=== PATIENT | male | born 1940 | race Caucasian/White ===

== ENCOUNTER 2018-12-07 13:42 | Observation (INO) ==
[2018-12-07] MEDS ORDERED: Aspirin 81 MG TAB.CHEW PO ONE (13:53)
[2018-12-07 14:26] LABS: Basophils % 1.1 %; Eosinophils # 0.1 K/mcL (0.0-0.6); Eosinophils % 1.9 %; Hematocrit 41.5 % (37.5-50.1); Hemoglobin 13.3 g/dL (12.9-16.9); Lymphocytes # 0.8 K/mcL (0.6-4.6); Lymphocytes % 20.5 %; Mean Corpuscular Hemoglobin 30.6 pg (28.0-33.3); Mean Corpuscular Volume 95.6 fL (83.0-100.0); Mean Platelet Volume 9.1 fL (9.4-12.4); Monocytes # 0.4 K/mcL (0.0-1.3); Monocytes % 11.6 %; Neutrophils # 2.4 K/mcL (1.6-8.9); Platelet Count 182 K/mcL (140-400); Red Blood Count 4.34 M/mcL (4.19-5.50); Red Cell Distribution Width 12.2 % (11.5-14.5); Segmented Neutrophils % 64.9 %
[2018-12-07 14:31] LABS: Prothrombin Time 11.6 Seconds (9.4-12.1)
[2018-12-07] MEDS ORDERED: Isovue-370 500 ML BOTTLE IVP ONE (14:32)
[2018-12-07 14:34] LABS: Activated Partial Thrombo Time 33.6 Seconds (26.0-36.0)
--- NOTE | 2018-12-07 14:51 | Emergency Department Note ---
Disposition Clinical Impression: Chest pain Qualifiers: Chest pain type: unspecified Qualified Code(s): R07.9 - Chest pain, unspecified Disposition: Admitted As Inpatient Condition: Fair Referrals: Fabián Estrada Jr, MD [Primary Care Provider] - Forms: ED Satisfaction Letter Time of Disposition: 16:07 Chest Pain HPI - General Chief Complaint: ED Chest Pain Stated Complaint: Chest Pain Time Seen by Provider: 12/07/18 13:46 Source: patient - History of Present Illness Severity scale (1-10): 0 - Related Data Home Medications Medication Instructions Recorded Confirmed Febuxostat [Uloric] 40 mg PO QAM 11/03/15 11/03/15 Previous Rx's Medication Instructions Recorded Hydrocodone/Acetaminophen [[place] 1 tab PO Q4H PRN #10 tab 11/03/15 5-325 Tablet] Allergies Allergy/AdvReac Type Severity Reaction Status Date / Time prochlorperazine Allergy Hives Verified 11/03/15 10:59 [From Compazine] Chest Pain PMH - Past Medical History Medical history: Reports: cancer Psychiatric history: Reports: no psych history - Social History Smoking Status: Never smoker Alcohol use: Reports: none Drug use: Reports: none Physical Exam - General General appearance: alert Course Vital Signs Temperature 98.2 F 12/07/18 13:48 Pulse Rate 68 12/07/18 13:48 Respiratory Rate 13 12/07/18 13:48 Blood Pressure 147/82 12/07/18 13:48 O2 Sat by Pulse Oximetry 98 12/07/18 13:48 Temperature 98.2 F 12/07/18 13:48 Pulse Rate 70 12/07/18 15:32 Respiratory Rate 21 12/07/18 15:32 Blood Pressure 139/71 12/07/18 15:32 O2 Sat by Pulse Oximetry 100 12/07/18 15:32 Oxygen Delivery Oxygen Delivery Room Air Chest Pain - Lab Data Result diagrams: 12/07/18 14:07 12/07/18 14:07 Lab Results 12/07/18 12/07/18 12/07/18 Range/Units 14:07 14:07 14:07 WBC 3.7 L (4.3-11.1) K/mcL RBC 4.34 (4.19-5.50) M/mcL Hgb 13.3 (12.9-16.9) g/dL Hct 41.5 (37.5-50.1) % MCV 95.6 (83.0-100.0) fL MCH 30.6 (28.0-33.3) pg MCHC 32.0 (31.6-35.5) g/dL RDW 12.2 (11.5-14.5) % Plt Count 182 (140-400) K/mcL MPV 9.1 L (9.4-12.4) fL Immature Gran % 0.0 (0-4) % Seg Neutrophils % 64.9 % Lymphocytes % 20.5 % Monocytes % 11.6 % Eosinophils % 1.9 % Basophils % 1.1 % Neutrophils # 2.4 (1.6-8.9) K/mcL Lymphocytes # 0.8 (0.6-4.6) K/mcL Monocytes # 0.4 (0.0-1.3) K/mcL Eosinophils # 0.1 (0.0-0.6) K/mcL Basophils # 0.0 (0.0-0.2) K/mcL PT 11.6 (9.4-12.1) Seconds INR 1.0 APTT 33.6 (26.0-36.0) Seconds Sodium (136-145) mEq/L Potassium (3.5-5.1) mEq/L Chloride (98-107) mEq/L Carbon Dioxide (23-29) mEq/L BUN (8-23) mg/dL Creatinine (0.70-1.30) mg/dL Est GFR ( Amer) (> 60) Est GFR (Non-Af Amer) (> 60) BUN/Creatinine Ratio (6-26) Glucose (70-105) mg/dL Calculated Osmolality (280-300) Calcium (8.6-10.3) mg/dL Troponin I (< 0.04) ng/mL B-Natriuretic Peptide 66 (Less than 100) pg/mL 12/07/18 Range/Units 14:07 WBC (4.3-11.1) K/mcL RBC (4.19-5.50) M/mcL Hgb (12.9-16.9) g/dL Hct (37.5-50.1) % MCV (83.0-100.0) fL MCH (28.0-33.3) pg MCHC (31.6-35.5) g/dL RDW (11.5-14.5) % Plt Count (140-400) K/mcL MPV (9.4-12.4) fL Immature Gran % (0-4) % Seg Neutrophils % % Lymphocytes % % Monocytes % % Eosinophils % % Basophils % % Neutrophils # (1.6-8.9) K/mcL Lymphocytes # (0.6-4.6) K/mcL Monocytes # (0.0-1.3) K/mcL Eosinophils # (0.0-0.6) K/mcL Basophils # (0.0-0.2) K/mcL PT (9.4-12.1) Seconds INR APTT (26.0-36.0) Seconds Sodium 138 (136-145) mEq/L Potassium 4.1 (3.5-5.1) mEq/L Chloride 104 (98-107) mEq/L Carbon Dioxide 28 (23-29) mEq/L BUN 13 (8-23) mg/dL Creatinine 0.84 (0.70-1.30) mg/dL Est GFR ( Amer) > 60 (> 60) Est GFR (Non-Af Amer) > 60 (> 60) BUN/Creatinine Ratio 15 (6-26) Glucose 102 (70-105) mg/dL Calculated Osmolality 286 (280-300) Calcium 9.3 (8.6-10.3) mg/dL Troponin I < 0.03 (< 0.04) ng/mL B-Natriuretic Peptide (Less than 100) pg/mL Attestation Statement - Attestation Attestation: I, Star Chambers DO, examined this patient [id number] and my medical decision-making was reviewed with Dr. Turner Lopez, Resident Physician. I agree with the documented findings, disposition and treatment plan as described except to the extent set forth below. I personally supervised and was present for the cortez/critical portions of the procedures completed by the resident documented below. Please see my progress notes for details. 78-year-old male presents emergency room with complaint of a proximally 6 weeks worth of chest discomfort and pain. He denies any falls trauma or injury. On evaluation the bedside is denying chest pain or symptoms. He says the symptoms come and go at random times radiated into his back. He denies any nausea vomiting or diarrhea. He does not have any headache or vision change. Denies a ny new medications. He did just start taking an aspirin again secondary to a previous history of spontaneous intracranial bleed. He is otherwise not any other blood thinners. Patient is sitting upright in the bed. He is alert he is oriented he is answering questions appropriately. His oropharynx is patent trachea is midline. His lungs are clear his heart is regular. He has no auscultated murmurs on exam. Abdomen is soft no pulsatile masses or lesions. Extremities otherwise normal. No signs of pitting edema or swelling. Patient was walking through the emergency department under his own power with no distress her symptoms. Patient is concerning for cardiac versus vascular related issue. He is very tall and thin concerning for possible marfanoid-like presentation. Family members are also very tall as well. Due to the timeframe of the symptoms as well as the chest discomfort the patient will have CT angiography the chest along with screening cardiac evaluation completed here at this time. Aspirin was given. CT the head was also ordered to rule out any signs of intracranial abnormality secondary to the concern for possibly needing blood thinners. Disposition pending full workup and treatment course. See detailed documentation the physical exam, medical intervention, medical decision-making and disposition in the resident physician's note. No critical care by the patient's treatment course at this time. Previous labs from 2 months ago shows stable GFR and creatinine the patient will be sent over for angiography at this time. [address] angiography the chest abdomen pelvis for dissection or aneurysm at this point. Patient has remained chest pain-free while here. Most of the symptoms are with exertion. Patient will not be started on heparin. We attempted to discuss this with the hospitalist but they did not feel that an ticoagulation was appropriate at this point. Patient is otherwise asymptomatic. Will continue to monitor here in the emergency room until the admission process is completed. Patient otherwise has no other acute findings noted during the treatment course. He will be admitted this time for acute coronary syndrome rule out.
[2018-12-07 14:53] LABS: BUN/Creatinine Ratio 15 (6-26); Blood Urea Nitrogen 13 mg/dL (8-23); Calcium 9.3 mg/dL (8.6-10.3); Carbon Dioxide 28 mEq/L (23-29); Chloride 104 mEq/L (98-107); Glucose 102 mg/dL (70-105); Osmolality,Calculated 286 (280-300); Potassium 4.1 mEq/L (3.5-5.1); Sodium 138 mEq/L (136-145); Troponin I < 0.03 ng/mL (< 0.04); eGFR For Non-African Americans > 60 (> 60)
--- NOTE | 2018-12-07 15:06 | Emergency Department Note ---
Disposition Clinical Impression: Chest pain Qualifiers: Chest pain type: unspecified Qualified Code(s): R07.9 - Chest pain, unspecified Disposition: Admitted As Inpatient Condition: Fair Referrals: Fabián Estrada Jr, MD [Non-Partnered Physician] - Forms: ED Satisfaction Letter Time of Disposition: 16:12 Chest Pain HPI - General Chief Complaint: ED Chest Pain Stated Complaint: Chest Pain Time Seen by Provider: 12/07/18 13:46 Source: patient Mode of arrival: ambulatory Limitations: no limitations Vital Signs Reviewed: Yes Nursing Notes Reviewed: Yes - History of Present Illness HPI Narrative: 78-year-old male no medical history presents to the emergency department complaining of right-sided chest pain as well as right shoulder pain. Said the pains been going on for 6 weeks. He describes it as 6 out of 10 nonradiating dull ache. Patient says that he has no other nausea or vomiting no other fevers no other complaints. He is not complaining of any abdominal pain. He has had no fevers or chills or coughing or congestion. He has not been a long car rides no history of blood clots, no recent surgeries he is not on any blood thinners. He did take a 325 aspirin prior to arrival. Patient otherwise has no other complaints at this time. Severity scale (1-10): 0 - Related Data Home Medications Medication Instructions Recorded Confirmed Febuxostat [Uloric] 40 mg PO QAM 11/03/15 11/03/15 Previous Rx's Medication Instructions Recorded Hydrocodone/Acetaminophen [[place] 1 tab PO Q4H PRN #10 tab 11/03/15 5-325 Tablet] Allergies Allergy/AdvReac Type Severity Reaction Status Date / Time prochlorperazine Allergy Hives Verified 11/03/15 10:59 [From Compazine] All systems ED: reviewed and negative except as stated. Review of Systems: As Per HPI Chest Pain PMH - Past Medical History Medical history: Reports: cancer Psychiatric history: Reports: no psych history - Social History Smoking Status: Never smoker Alcohol use: Reports: none Drug use: Reports: none Physical Exam - General Limitations: no limitations General appearance: alert - Head Head exam: atraumatic, normocephalic, normal inspection - Eye Eye exam: Present: normal appearance, PERRL, EOMI - ENT ENT exam: normal exam, normal oropharynx, mucous membranes moist - Neck Neck exam: Present: normal inspection, full ROM, trachea midline - Chest Chest inspection: Present: normal inspection, symmetric chest wall rise - Respiratory Respiratory exam: Present: normal lung sounds bilaterally - Cardiovascular Cardiovascular exam: Present: regular rate, normal rhythm, normal heart sounds - Abdominal Exam Abdominal exam: Present: soft, Non-Tender. Absent: tenderness, distention, guarding, rebound, rigidity - Extremities Exam Extremities exam: Present: normal inspection, full ROM. Absent: tenderness, pedal edema - Back Exam Back exam: Present: normal inspection, full ROM. Absent: tenderness - Neurological Exam Neurological exam: Present: alert, oriented X3 - Skin Skin exam: Present: warm, dry, intact, normal color Course Course Narrative: 78-year-old male presented emergency department with chest pain. We will get basic blood screening CBC BMP troponin will also get chest x-ray patient today took aspirin. No chest or now no nitroglycerin needed. We will do CT angiogram of the chest to rule out aortic aneurysm. Patient okay at this point. Most likely disposition will be admission for further evaluation. Vital Signs Temperature 98.2 F 12/07/18 13:48 Pulse Rate 68 12/07/18 13:48 Respiratory Rate 13 12/07/18 13:48 Blood Pressure 147/82 12/07/18 13:48 O2 Sat by Pulse Oximetry 98 12/07/18 13:48 Temperature 98.2 F 12/07/18 13:48 Pulse Rate 70 12/07/18 15:32 Respiratory Rate 21 12/07/18 15:32 Blood Pressure 139/71 12/07/18 15:32 O2 Sat by Pulse Oximetry 100 12/07/18 15:32 Oxygen Delivery Oxygen Delivery Room Air Chest Pain - [facility] Narrative Medical decision making narrative: 78-year-old male process the emergency department complaining of chest pain. CT [place] chest was negative for dissection. Troponins also were negative. I spoke with the hospitalist and agreed to admit the patient for ACS rule out. Patient does have a low heart score but due to having the unstable angina as is worse with walking I feel patient needs to be admitted for further evaluation patient family both agree. Patient's admitted in stable condition. No acute EKG changes I spoke with the hospitalist Dr. Delvalle who agreed to accept patient. - Medical Records Medical records reviewed: Yes I reviewed the patient's medical records. - Lab Data Lab results reviewed: Yes I reviewed the patient's lab results. Result diagrams: 12/07/18 14:07 12/07/18 14:07 Lab Results 12/07/18 12/07/18 12/07/18 Range/Units 14:07 14:07 14:07 WBC 3.7 L (4.3-11.1) K/mcL RBC 4.34 (4.19-5.50) M/mcL Hgb 13.3 (12.9-16.9) g/dL Hct 41.5 (37.5-50.1) % MCV 95.6 (83.0-100.0) fL MCH 30.6 (28.0-33.3) pg MCHC 32.0 (31.6-35.5) g/dL RDW 12.2 (11.5-14.5) % Plt Count 182 (140-400) K/mcL MPV 9.1 L (9.4-12.4) fL Immature Gran % 0.0 (0-4) % Seg Neutrophils % 64.9 % Lymphocytes % 20.5 % Monocytes % 11.6 % Eosinophils % 1.9 % Basophils % 1.1 % Neutrophils # 2.4 (1.6-8.9) K/mcL Lymphocytes # 0.8 (0.6-4.6) K/mcL Monocytes # 0.4 (0.0-1.3) K/mcL Eosinophils # 0.1 (0.0-0.6) K/mcL Basophils # 0.0 (0.0-0.2) K/mcL PT 11.6 (9.4-12.1) Seconds INR 1.0 APTT 33.6 (26.0-36.0) Seconds Sodium (136-145) mEq/L Potassium (3.5-5.1) mEq/L Chloride (98-107) mEq/L Carbon Dioxide (23-29) mEq/L BUN (8-23) mg/dL Creatinine (0.70-1.30) mg/dL Est GFR ( Amer) (> 60) Est GFR (Non-Af Amer) (> 60) BUN/Creatinine Ratio (6-26) Glucose (70-105) mg/dL Calculated Osmolality (280-300) Calcium (8.6-10.3) mg/dL Troponin I (< 0.04) ng/mL B-Natriuretic Peptide 66 (Less than 100) pg/mL 12/07/18 Range/Units 14:07 WBC (4.3-11.1) K/mcL RBC (4.19-5.50) M/mcL Hgb (12.9-16.9) g/dL Hct (37.5-50.1) % MCV (83.0-100.0) fL MCH (28.0-33.3) pg MCHC (31.6-35.5) g/dL RDW (11.5-14.5) % Plt Count (140-400) K/mcL MPV (9.4-12.4) fL Immature Gran % (0-4) % Seg Neutrophils % % Lymphocytes % % Monocytes % % Eosinophils % % Basophils % % Neutrophils # (1.6-8.9) K/mcL Lymphocytes # (0.6-4.6) K/mcL Monocytes # (0.0-1.3) K/mcL Eosinophils # (0.0-0.6) K/mcL Basophils # (0.0-0.2) K/mcL PT (9.4-12.1) Seconds INR APTT (26.0-36.0) Seconds Sodium 138 (136-145) mEq/L Potassium 4.1 (3.5-5.1) mEq/L Chloride 104 (98-107) mEq/L Carbon Dioxide 28 (23-29) mEq/L BUN 13 (8-23) mg/dL Creatinine 0.84 (0.70-1.30) mg/dL Est GFR ( Amer) > 60 (> 60) Est GFR (Non-Af Amer) > 60 (> 60) BUN/Creatinine Ratio 15 (6-26) Glucose 102 (70-105) mg/dL Calculated Osmolality 286 (280-300) Calcium 9.3 (8.6-10.3) mg/dL Troponin I < 0.03 (< 0.04) ng/mL B-Natriuretic Peptide (Less than 100) pg/mL - Radiology Data Radiology results reviewed: Yes I reviewed the patient's radiology results. - EKG Data EKG attestation: Yes I reviewed and interpreted this EKG. EKG results narrative: EKG done at 13 for an interview myself and attending shows sinus rhythm rate 64, [place] 151, QRS 98, QTC 417. Is no acute ST changes no acute T-wave changes no other signs of ischemia he does have elevations in leads V2 and V3 of the ST segment.. No signs of hypertrophy, heart strain, heart block. No WPW/Brugada/HOCM.*-The ST elevations in leads V2 and V3 are the same as when compared with previous done 01/30/15 there is no acute changes based on the ST changes. Heart Score - Score History: Moderately Suspicious EKG: Non Specific repolarisation Disturbance Age: Greater than 65 Risk Factors: 1-2 risk factors Troponin: Less than normal limit HEART Score Total: 5 Attestation Statement - Attestation Attestation: I, Star Chambers DO, examined this patient [id number] and my medical decision-making was reviewed with Dr. Turner Lopez, Resident Physician. I agree with the documented findings, disposition and treatment plan as described except to the extent set forth below. I personally supervised and was present for the cortez/critical portions of the procedures completed by the resident documented dixie oliveira. Please see my progress notes for details.
[2018-12-07] MEDS ORDERED: Naloxone 0.4 MG/ML INJ IVP PRN (16:08)
--- NOTE | 2018-12-07 16:12 | Internal Med History&Physical ---
Date of Encounter: 12/07/18 Time of Encounter: 16:12 Internal Medicine - H&P: HPI Chief complaint: chest pain Admitted From: Home Plans for Post Hospital Care: Home History of present illness: Mr. Barker is a 78 year old male with history of prostate cancer presented to the ED with complaint of chest pain. his pain started about 6 weeks and has been constant. pain is located in the middle of his chest and epigastric area, non- radiating and 5/10 on severity and dull in nature. he denies SOB, palpitations, cough, N/V/D, diaphoresis or recent chest trauma or heavy lifting. He cannot recall alleviating factors however the pain is exacerbated by eating. He has lost his appetite and due to the pain he has decreased his oral intake and reports weight loss. he had excruciating pain on friday that woke him up from sleep and he took ASA with minimal relief. he continued to have the pain so he decided to come to the ED. He denies any cardiac history, no significant family history of heart disease, denies smoking, alcohol or illicit drug use. while in [facility] ED CTA dissection study was done and negative for any acute abnormalities except for emphysema and lung nodules. Past Med Surg Social Fam HX - Past Medical History Medical history: cancer Psychiatric history: no psych history - Past Surgical History Additional surgical history: brain. prostate removed - Social History Smoking Status: Never smoker Smokeless Tobacco Status: No Alcohol use: none Drug use: none Internal Medicine - H&P: Meds Febuxostat [Uloric] 80 mg PO QAM 11/03/15 [History] Hydrocodone/Acetaminophen [[place] 5-325 Tablet] 1 tab PO Q4H PRN #10 tab 11/03/15 [Rx] Omeprazole [PriLOSEC] 20 mg PO DAILY 12/07/18 [History] Temazepam [Restoril] 12/07/18 [History] Allergy/AdvReac Type Severity Reaction Status Date / Time prochlorperazine Allergy Hives Verified 11/03/15 10:59 [From Compazine] All Systems PM: A 10-system review of systems was performed and is negative for pertinent fin dings except as documented above in the HPI. - Constitutional Vitals: Temp Pulse Resp BP Pulse Ox 98.2 F 70 21 139/71 100 12/07/18 13:48 12/07/18 15:32 12/07/18 15:32 12/07/18 15:32 12/07/18 15:32 Exam: General: Patient is alert, oriented, no acute distress, thin, marfanoid body type Head: atraumatic, normocephalic, Eye: normal appearance, PERRL, no scleral icterus, no conjunctival injection ENT: mucous membranes moist, normal external ear exam Neck: normal inspection, trachea midline, full ROM, no carotid bruits Chest: normal inspection, symmetric chest rise Respiratory: Good respiratory effort. Bilateral breath sounds are clear without wheezing, crackles, or rhonchi. Cardiovascular: Regular rate and rhythm. s1 and s2 No clicks, rubs, gallops, or murmors. Abdomen: Bowel sounds present normoactive x-4 quadrants. Abdomen is soft, nondistended. no Epigastric tenderness. No guarding or rebound. No organomegaly noted, mcnamara sign negative musculoskeletal: Spontaneously moving all extremities. no edema, no calf tenderness Skin: warm, dry, intact. Neuro: Alert and oriented x 3 no focal deficit Psych: Patient's affect is normal Internal Med - H&P Results - Labs CBC & Chem 7: 12/07/18 14:07 12/07/18 14:07 Labs: Short CBC 12/07/18 Range/Units 14:07 WBC 3.7 L (4.3-11.1) K/mcL Hgb 13.3 (12.9-16.9) g/dL Hct 41.5 (37.5-50.1) % Plt Count 182 (140-400) K/mcL Neutrophils # 2.4 (1.6-8.9) K/mcL BMP 12/07/18 14:07 Sodium 138 Potassium 4.1 Chloride 104 Carbon Dioxide 28 BUN 13 Creatinine 0.84 Glucose 102 Calcium 9.3 Cardiac Enzymes 12/07/18 Range/Units 14:07 Troponin I < 0.03 (< 0.04) ng/mL - EKG Data -: EKG Interpreted by Myself EKG shows normal: sinus rhythm (LVH, QTC 417) - EKG Data Prior EKG available for review: yes When compared to previous EKG: there is no significant change - Impressions ITS Impressions Chest X-Ray 12/07/18 13:53 IMPRESSION: No acute process. D/ / Popeye Monroy MD / Popeye Monroy MD Interpreting Provider: Popeye Monroy MD Dissection 12/07/18 14:32 IMPRESSION: No thoracic or abdominal aortic aneurysm or dissection. Emphysema. Pulmonary nodules measuring up to 5 mm.In a low-risk patient, no routine follow-up. In a high-risk patient, optional CT at 12 months. D/ / Penny Barroso MD / Penny Barroso MD Interpreting Provider: Penny Barroso MD Head CT 12/07/18 14:32 IMPRESSION: No acute intracranial abnormality. Status post left frontal craniotomy. D/ / Arnoldo Olivares MD / Arnoldo Olivares MD Interpreting Provider: Arnoldo Olivares MD - Assessment and Plan (1) Chest pain, rule out acute myocardial infarction Current Visit: Yes Status: Acute Assessment and plan: chest pain rule out ACS ruled out aortic dissection in the ED - CTA negative tele monitoring was loaded with asa in [facility] ED continue to trend trononin and ekgs echocardiogram lipid panel, TSH in AM LFTs stat will keep NPO for further cardiology work up pending above NTG Q5M PRN for chest pain (2) Generalized postprandial abdominal pain Current Visit: Yes Status: Acute Assessment and plan: CTA for dissection with out acute abnormalities " Liver, gallbladder, pancreas, and spleen are unremarkable." ?erosive gastritis vs GERD vs peptic ulcer disease vs pancreatitis, rule out other etiologies ( malignancy) vs mesenteric ischemia continue with PPI LFTs and amylase and lipase stat consider GI consult - he has had weight loss gentle hydration consider CTA of the mesenteric arteries (3) Weight loss, non-intentional Current Visit: Yes Status: Acute Assessment and plan: nutrition consulted gentle hydration BMI 21 TSH ordered (4) DVT prophylaxis Current Visit: Yes Status: Acute Assessment and plan: heparin sc - Time Spent With Patient Total time spent is greater than 50% in coordination of care (as documented) at patient's floor/unit and/or counseling patient:
[2018-12-07 16:31] LABS: Alanine Aminotransferase 14 Units/L (7-52); Albumin 4.3 g/dL (3.5-5.7); Albumin/Globulin Ratio 1.7 (1.1-2.2); Alkaline Phosphatase 44 Units/L (34-104); Aspartate Amino Transferase 20 Units/L (13-39); Bilirubin,Direct 0.1 mg/dL (0.0-0.2); Bilirubin,Indirect 0.5 mg/dL (0.0-1.2); Bilirubin,Total 0.6 mg/dL (0.3-1.0); Globulin 2.6 g/dL (2.4-3.5); Total Protein 6.9 g/dL (6.4-8.9)
[2018-12-07] MEDS ORDERED: 0.9 % Sodium Chloride 1,000 ML IVC SCH (17:00)
[2018-12-07 17:05] LABS: Amylase 33 Units/L (29-103); Lipase 21 Units/L (11-82)
[2018-12-07] MEDS ORDERED: Nitroglycerin 0.4 MG TAB.SUBL SL PRN (17:40)
[2018-12-07] MEDS ORDERED: Pantoprazole 40 MG VIAL IVP ONE (17:41)
[2018-12-07] MEDS: *HR* Heparin 5,000 UNIT/ML VIAL SQ SCH (20:38)
[2018-12-07] MEDS ORDERED: Temazepam 15 MG CAPSULE PO SCH (21:00)
[2018-12-08 03:54] LABS: Basophils % 0.7 %; Eosinophils # 0.2 K/mcL (0.0-0.6); Eosinophils % 4.2 %; Hematocrit 40.1 % (37.5-50.1); Hemoglobin 13.3 g/dL (12.9-16.9); Immature Granulocytes % 0.2 % (0-4); Lymphocytes # 0.8 K/mcL (0.6-4.6); Lymphocytes % 20.4 %; Mean Corpuscular HGB Conc 33.2 g/dL (31.6-35.5); Mean Corpuscular Volume 93.5 fL (83.0-100.0); Mean Platelet Volume 9.3 fL (9.4-12.4); Monocytes # 0.4 K/mcL (0.0-1.3); Monocytes % 9.9 %; Neutrophils # 2.6 K/mcL (1.6-8.9); Platelet Count 187 K/mcL (140-400); Red Blood Count 4.29 M/mcL (4.19-5.50); Red Cell Distribution Width 12.4 % (11.5-14.5); Segmented Neutrophils % 64.6 %
[2018-12-08 04:11] LABS: BUN/Creatinine Ratio 19 (6-26); Blood Urea Nitrogen 13 mg/dL (8-23); Calcium 8.7 mg/dL (8.6-10.3); Carbon Dioxide 27 mEq/L (23-29); Chloride 105 mEq/L (98-107); Chol/HDL Ratio 2.9 (0-4.9); Cholesterol 147 mg/dL (< 200); Glucose 92 mg/dL (70-105); HDL Cholesterol 50 mg/dL (40-59); LDL Cholesterol,Calculated 84 mg/dL (0-99); Magnesium 2.1 mg/dL (1.6-2.6); Osmolality,Calculated 288 (280-300); Potassium 3.7 mEq/L (3.5-5.1); Sodium 139 mEq/L (136-145); Triglycerides 66 mg/dL (< 150); eGFR For Non-African Americans > 60 (> 60)
[2018-12-08] MEDS: *HR* Heparin 5,000 UNIT/ML VIAL SQ SCH (05:54)
[2018-12-08 07:12] VITALS: BP 138/76
--- NOTE | 2018-12-08 11:05 | Electrocardiograph Report ---
[place] [id number] Test Date: 2018-12-07 Pat Name: Davy Barker Department: [id number] Room: 3B44 Gender: M [employer] Operator: : [id number] Requested By: Star Chambers Order Number: [id number] Reading MD: Rut Ram Measurements Intervals [place] Rate: 64 P: 79 HI: 151 QRS: 8 QRSD: 98 T: 68 QT: 404 QTc: 417 Interpretive Statements Sinus rhythm RSR' in V1 or V2, probably normal variant Left ventricular hypertrophy Electronically Signed On 12-08-2018 11:03:40 EDT by Rut Ram
--- NOTE | 2018-12-08 14:40 | Discharge Summary ---
- NOTES TO OUTPATIENT PROVIDER Notes to Outpatient Provider: Follow up with PCP in one week. Orders not resulted at time of discharge: Pending orders 12/07/18 20:00 ECG 12 lead ECG [ECG] Routine 12/08/18 08:43 NM sony perf SPECT multi [NM] Routine Date of Encounter: 12/08/18 Time of Encounter: 14:37 - Discharge Diagnosis (1) Chest pain, rule out acute myocardial infarction Priority: Primary Status: Acute (2) Generalized postprandial abdominal pain Priority: Primary Status: Acute (3) DVT prophylaxis Priority: Secondary Status: Acute (4) Weight loss, non-intentional Priority: Secondary Status: Acute (5) GERD (gastroesophageal reflux disease) Priority: Secondary Status: Acute Qualifiers: Esophagitis presence: esophagitis presence not specified Qualified Code(s): K21.9 - Gastro-esophageal reflux disease without esophagitis Hospital course: Mr. Barker is a 78 year old male with history of prostate cancer presented to the ED with complaint of chest pain. Pt stated his pain started after he finish ed his dinner, located epigastric and sub sternal region. Non-radiating and 5/10 on severity and dull in nature. In the ED CTA dissection study was done and negative for any acute abnormalities except for emphysema and lung nodules. Patient was admitted in the hospital and placed him on cosmetic maker. His serial troponin came back as negative. Since patient is high risk for ACS he did go for nuclear stress test which came back as negative for ischemia / infraction. So will d/c him home in stable condition today. His CP seems to be due to heart burn. - Time Spent with Patient Total time spent providing and/or coordinating discharge services: - Discharge Medications Prescriptions: New Aspirin Enteric Coated [Aspirin EC] 81 mg PO DAILY #30 tablet. Continued Omeprazole [PriLOSEC] 20 mg PO DAILY PRN PRN Reason: Indigestion Temazepam [Restoril] 15 mg PO QDPC Fludrocortisone Acetate [Florinef] 0.1 mg PO DAILY Febuxostat [Uloric] 80 mg PO DAILY Calcium Carbonate [Calcium] 600 mg PO DAILY Gluc HCl/Csa/Collagen/Hyalur A [Glucosamine Chondroitin Cap] 1 each PO DAILY Home Medications: Omeprazole [PriLOSEC] 20 mg PO DAILY PRN 12/07/18 [History] Temazepam [Restoril] 15 mg PO QDPC 12/07/18 [History] Aspirin Enteric Coated [Aspirin EC] 81 mg PO DAILY #30 tablet. 12/08/18 [Rx] Calcium Carbonate [Calcium] 600 mg PO DAILY 12/08/18 [History] Febuxostat [Uloric] 80 mg PO DAILY 12/08/18 [History] Fludrocortisone Acetate [Florinef] 0.1 mg PO DAILY 12/08/18 [History] Gluc HCl/Csa/Collagen/Hyalur A [Glucosamine Chondroitin Cap] 1 each PO DAILY 12/08/18 [History] Allergies/Adverse Reactions: Allergy/AdvReac Type Severity Reaction Status Date / Time prochlorperazine Allergy Hives Verified 11/03/15 10:59 [From Compazine] Date of admission: 12/07/18 16:23 Primary care physician: Fabián Estrada Jr, MD - Constitutional Vitals: Temp Pulse Resp BP Pulse Ox 97.9 F 58 16 138/76 97 12/08/18 07:05 12/08/18 07:05 12/08/18 07:05 12/08/18 07:05 12/08/18 07:05 General appearance: Present: A&O X 3, no acute distress, answers questions appropriately Exam: Gen: Alert, awake, Oriented to time,place and person Chest: Diminished breath sounds B/L, No wheezing, No crackles, No rales Heart: S1S2+ RRR No murmurs Abd: Soft, NT, BS +, No organomegaly Ext: No edema, pulses are palpable, No calf tenderness Neuro : Benign findings Skin: No rash. - Patient Status Disposition: Home, Self-Care Condition: Good Overall status at discharge: patient is back to baseline - Discharge Instructions Follow Up With: Fabián Estrada Jr, MD [Primary Care Provider] - 12/16/18 11:00 am - Diet and Activity Activity: increase activity as tolerated Diet: low salt diet
--- NOTE | 2018-12-08 15:39 | Electrocardiograph Report ---
[place] [id number] Test Date: 2018-12-07 Pat Name: Davy Barker Department: 113 Room: 3B44 Gender: M [employer]: : [id number] Requested By: Namita Spaulding Order Number: [id number] Reading MD: Aaron Ram Measurements Intervals [place] Rate: 59 P: 83 ND: 162 QRS: 66 QRSD: 97 T: 78 QT: 417 QTc: 415 Interpretive Statements SINUS BRADYCARDIA Electronically Signed On 12-08-2018 15:37:48 EDT by Aaron Ram
== END 2018-12-08 16:48 | disposition home or self-care (01) ==
LOC: EMEROOARM 13:42 → 3BNU 13:42
PROVIDERS: ADMIT Internal Medicine; ATTEND Internal Medicine